=== PATIENT | female | born 1940 | race Caucasian/White ===

== ENCOUNTER 2016-09-01 19:55 | Emergency (ER) | payer OTHER ==
[~2016-09-01] VITALS: Ht 165.1 cm; Wt 61.2 kg
[2016-09-01 20:00] VITALS: BP 150/66; PULSE 75; RESP 20; TEMP 98.2; O2SAT 98
--- NOTE | 2016-09-01 22:05 | NUR ---
Placed in hallway.
--- NOTE | 2016-09-01 22:10 | NUR ---
Pt states that she was walking dog and she had a mechanical fall. She landed on her R shoulder and R hand. Bruising of the hand and deformity noted. Denies Ko. Will continue to monitor. No distress noted.
[2016-09-01] MEDS: OXYCODONE/ACETAMINOPHEN 5-325 TABLET PO ONE ×2 (22:13→22:16)
--- NOTE | 2016-09-01 22:15 | NUR ---
ER Dr. Kerr at bedside examining patient.
--- NOTE | 2016-09-01 22:16 | NUR ---
Pt was given one of percocet now and one given to for pt to take later. Dr. Kerr okayed this.
[2016-09-01 22:21] VITALS: BP 150/66; PULSE 75; RESP 20; TEMP 98.2; O2SAT 98
--- NOTE | 2016-09-01 22:21 | NUR ---
Patient given written and verbal discharge instructions and verbalizes understanding. ER MD discussed with patient the results and treatment provided. Patient in stable condition. ID arm band removed. Rx of [place] given. Patient educated on pain management and to follow up with PMD. Pain Scale 2/10. Opportunity for questions provided and answered.
== END 2016-09-01 22:21 | disposition home or self-care (01) ==
LOC: SED 19:55
DX: S42.291A Other displaced fracture of upper end of right humerus, initial encounter for closed fracture (principal); I10 Essential (primary) hypertension; H91.91 Unspecified hearing loss, right ear; Z88.0 Allergy status to penicillin; Z86.73 Personal history of transient ischemic attack (TIA), and cerebral infarction without residual deficits; W19.XXXA Unspecified fall, initial encounter; Y93.01 Activity, walking, marching and hiking; Y92.89 Other specified places as the place of occurrence of the external cause; Y99.8 Other external cause status
CPT/HCPCS: 73030; 73060-TC; 99284